=== PATIENT | female | born 1985 | race Caucasian/White ===

== ENCOUNTER 2017-05-14 23:21 | Emergency (ER) | payer OTHER ==
[~2017-05-14] VITALS: Ht 165.1 cm; Wt 84.4 kg
[~2017-05-14 23:21] MED LIST: ASCO500C20 PO; FERR-193 PO; IBUP-2213 PO; PREN-234 PO
[2017-05-14 23:40] VITALS: BP 111/71
--- NOTE | 2017-05-15 02:41 | NUR ---
PATIENT LEFT WITHOUT BEING SEEN BY DR. SPEAR. NO FURTHER CARE PROVIDED FOR PATIENT.
== END 2017-05-15 02:41 | disposition left against medical advice (07) ==
LOC: MED 23:21
DX: H92.01 Otalgia, right ear (principal); Z53.21 Procedure and treatment not carried out due to patient leaving prior to being seen by health care provider

== ENCOUNTER 2017-09-20 23:15 | Emergency (ER) | payer OTHER ==
[~2017-09-20] VITALS: Ht 165.1 cm; Wt 83.5 kg
[2017-09-20 23:24] VITALS: BP 130/83
--- NOTE | 2017-09-21 00:15 | NUR ---
PATIENT LEFT WITHOUT BEING SEEN BY DR. BAKER. NO FURTHER CARE PROVIDED FOR PATIENT.
== END 2017-09-21 00:15 | disposition left against medical advice (07) ==
LOC: MED 23:15
DX: R10.9 Unspecified abdominal pain (principal); Z53.21 Procedure and treatment not carried out due to patient leaving prior to being seen by health care provider

== ENCOUNTER 2018-03-08 18:04 | Emergency (ER) | payer OTHER ==
[~2018-03-08] VITALS: Ht 167.6 cm; Wt 88.0 kg
[~2018-03-08 18:04] MED LIST changes: +FERR-15 PO; -FERR-193 PO
[2018-03-08 18:25] VITALS: BP 126/77
--- NOTE | 2018-03-08 18:29 | NUR ---
Lidia herrera in [facility] - 03/08/18 at 1829 by LAUREN patient to lobby with steady gait awaiting available room with mother. vss
--- NOTE | 2018-03-08 18:29 | NUR ---
patient to lobby with steady gait awaiting available room. vss
--- NOTE | 2018-03-08 20:04 | NUR ---
TALKED WITH PT, INFORMED HER WE WOULD BE CALLING HER BACK SHORTLY.
--- NOTE | 2018-03-08 20:10 | NUR ---
Patient ambulated to bed 1 with family. RN evaluating patient at bedside.
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
[2018-03-08] MEDS ORDERED: HYDROcodone/APAP 5/325 MG 1 TAB TAB PO ONE (20:25)
[2018-03-08] MEDS ORDERED: KETOROLAC 30 MG/ML VIAL IM ONE (20:25)
[2018-03-08 22:15] VITALS: BP 124/74
--- NOTE | 2018-03-08 22:15 | NUR ---
Patient discharged with v/s stable. Written and verbal after care instructions given and explained. Patient alert, oriented and verbalized understanding of instructions. Ambulatory with steady gait. All questions addressed prior to discharge. ID band removed. Patient advised to follow up with PMD. Rx of NAPROSYN AND NORCO given. Patient educated on indication of medication including possible reaction and side effects. Opportunity to ask questions provided and answered.
== END 2018-03-08 22:15 | disposition home or self-care (01) ==
LOC: MED 18:04
DX: S80.12XA Contusion of left lower leg, initial encounter (principal); Z79.899 Other long term (current) drug therapy; V89.2XXA Person injured in unspecified motor-vehicle accident, traffic, initial encounter; Y93.89 Activity, other specified; Y92.89 Other specified places as the place of occurrence of the external cause; Y99.8 Other external cause status
CPT/HCPCS: 73590; 81025; 93971; 96372; 99284; J1885; Q0092